=== PATIENT | male | born 2000 | race Caucasian/White ===

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

== ENCOUNTER 2019-04-15 23:09 | Emergency (ER) | payer MEDICAID ==
[~2019-04-15] VITALS: Ht 167.6 cm; Wt 113.6 kg
[2019-04-15 23:19] VITALS: BP 158/97
== END 2019-04-16 02:00 | disposition left against medical advice (07) ==
LOC: EMS 23:10
DX: R21 Rash and other nonspecific skin eruption (principal); Z53.21 Procedure and treatment not carried out due to patient leaving prior to being seen by health care provider